=== PATIENT | female | born 1995 | race Caucasian/White ===

== ENCOUNTER 2018-09-23 12:25 | Outpatient (REF) | payer MEDICAID, SELFPAY ==
[2018-09-23 18:58] LABS: HCT 40.7 % (36.0-46.0); HGB 13.5 g/dL (12.0-15.5); Mean Corp. HGB Concentration 33.2 g/dL (32.0-36.0); Mean Corpuscular Hemoglobin 27.3 pg (27.0-33.0); Mean Corpuscular Volume 82.4 fL (80-95); Platelet Count 315 x1000/uL (130-400); RBC 4.94 m/cumm (4.00-5.20); RBC Distribution Width 13.8 % (11.7-14.6); White Blood Cell Count 7.22 k/cumm (4.4-10.8)
== END 2018-09-23 12:45 ==
LOC: NCHCN 12:25
PROVIDERS: PCP Physician Assistant; Visit Provider Nurse Practitioner Family
DX: R53.83 Other fatigue (principal)
CPT/HCPCS: 85027

== ENCOUNTER 2020-03-16 12:27 | Outpatient (REF) | payer MEDICAID, SELFPAY ==
[2020-03-19 21:42] LABS: Chlamydia amplified RNA Negative (Negative); N gonorrhoeae amplified RNA Negative (Negative); Source VAGINAL
== END 2020-03-16 12:47 ==
LOC: NCHCN 12:27
PROVIDERS: PCP Physician Assistant; Visit Provider Physician Assistant
DX: R35.0 Frequency of micturition (principal)
CPT/HCPCS: 87077; 87491; 87591; 87086; 87186; 87480; 87510; 87660

== ENCOUNTER 2021-01-26 12:05 | Outpatient (REF) | payer MEDICAID, SELFPAY ==
[2021-01-28 10:56] LABS: COVID-19 RT-PCR UVMMC Result Negative (Negative)
== END 2021-01-26 12:06 | disposition home or self-care (01) ==
LOC: NCHCN 12:05
PROVIDERS: PCP Physician Assistant; Visit Provider Internal Medicine
DX: Z20.822 Contact with and (suspected) exposure to COVID-19 (principal)
CPT/HCPCS: U0003

== ENCOUNTER 2021-08-16 14:32 | Outpatient (REF) | payer MEDICAID, SELFPAY ==
[2021-08-18 11:26] LABS: COVID-19 RT-PCR UVMMC Result Negative (Negative)
== END 2021-08-16 14:33 | disposition home or self-care (01) ==
LOC: NCHCN 14:32
PROVIDERS: PCP Physician Assistant; Visit Provider Internal Medicine
DX: Z20.822 Contact with and (suspected) exposure to COVID-19 (principal)
CPT/HCPCS: U0003

== ENCOUNTER 2022-07-18 16:48 | Outpatient (REF) | payer MEDICAID, SELFPAY ==
[2022-07-18 19:29] LABS: Hemoglobin A1C 4.7 % (<5.7)
[2022-07-18 19:41] LABS: ALT 21 U/L (14-59); AST 21 U/L (15-37); Albumin 4.2 g/dL (3.4-5.0); Alkaline Phosphatase 69 U/L (46-116); Anion Gap 8.6 mmol/L (3-11); BUN 11 mg/dL (7-18); Bilirubin, Total 0.3 mg/dL (0.2-1.0); CO2 27.4 mmol/L (21.0-32.0); CREATININE 0.8 mg/dL (0.55-1.02); Chloride 104 mmol/L (98-107); Estimated GFR 104.15 (mL/min/1.73m2); Glucose 98 mg/dL (74-106); Potassium 4.1 mmol/L (3.5-5.1); Sodium 140 mmol/L (136-145); Total Protein 7.5 g/dL (6.4-8.2)
[2022-07-20 10:15] LABS: Hepatitis C Ab w Rflx HCV PCR Negative (Negative)
[2022-07-20 10:35] LABS: HIV-1/2 Ag & Ab Screen Negative (Negative)
[2022-07-20 10:46] LABS: Syphilis Serology (RPR) Negative (Negative)
[2022-07-20 14:11] LABS: Chlamydia Result Negative (Negative); GC Result Negative (Negative)
== END 2022-07-18 16:49 | disposition home or self-care (01) ==
LOC: NCHCN 16:48
PROVIDERS: PCP Physician Assistant; Visit Provider Nurse Practitioner Family
DX: Z13.220 Encounter for screening for lipoid disorders (principal); Z13.1 Encounter for screening for diabetes mellitus; Z11.3 Encounter for screening for infections with a predominantly sexual mode of transmission; Z11.4 Encounter for screening for human immunodeficiency virus [HIV]; Z11.59 Encounter for screening for other viral diseases
CPT/HCPCS: 80053; 86803; 87389; 87491; 87591; 83036; 86592

== ENCOUNTER 2023-02-06 11:34 | Outpatient (REF) | payer MEDICAID, SELFPAY ==
[2023-02-06 20:17] LABS: ALT 15 U/L (14-59); AST 16 U/L (15-37); Albumin 3.8 g/dL (3.4-5.0); Alkaline Phosphatase 61 U/L (46-116); Anion Gap 7.1 mmol/L (3-11); BUN 8 mg/dL (7-18); Bilirubin, Total 0.4 mg/dL (0.2-1.0); CO2 27.9 mmol/L (21.0-32.0); CREATININE 0.8 mg/dL (0.55-1.02); Calcium 9.2 mg/dL (8.5-10.1); Chloride 105 mmol/L (98-107); Estimated GFR 104.15 (mL/min/1.73m2); Glucose 76 mg/dL (74-106); Potassium 4.2 mmol/L (3.5-5.1); Sodium 140 mmol/L (136-145); TSH 0.54 uIU/mL (0.36-3.74); Total Protein 7.3 g/dL (6.4-8.2)
== END 2023-02-06 11:35 | disposition home or self-care (01) ==
LOC: NCHCN 11:34
PROVIDERS: PCP Physician Assistant; Visit Provider Nurse Practitioner Family
DX: R42 Dizziness and giddiness (principal); G43.909 Migraine, unspecified, not intractable, without status migrainosus
CPT/HCPCS: 80053; 84443

== ENCOUNTER 2024-02-26 19:44 | Outpatient (REF) | payer MEDICAID, SELFPAY ==
[2024-02-27 19:42] LABS: HIV-1/2 Ag & Ab Screen Negative (Negative)
[2024-02-27 19:50] LABS: Hepatitis C Ab w Rflx HCV PCR Negative (Negative)
[2024-02-28 09:50] LABS: Syphilis Serology (RPR) Negative (Negative)
[2024-03-01 22:23] LABS: Chlamydia amplified RNA Negative (Negative); N gonorrhoeae amplified RNA Negative (Negative); Source Vaginal
[2024-03-06 08:37] LABS: Misc Referral (MAYO) See Comments
== END 2024-02-26 19:45 | disposition home or self-care (01) ==
LOC: NCHCN 19:44
PROVIDERS: PCP Physician Assistant; Visit Provider Nurse Practitioner Family
DX: Z11.3 Encounter for screening for infections with a predominantly sexual mode of transmission (principal)
CPT/HCPCS: 86803; 87389; 87491; 87591; 87661; 86592

== ENCOUNTER 2024-05-19 15:28 | Outpatient (REF) | payer MEDICAID, SELFPAY ==
[2024-05-20 19:36] LABS: HIV-1/2 Ag & Ab Screen Negative (Negative)
[2024-05-20 20:11] LABS: Hepatitis C Ab w Rflx HCV PCR Negative (Negative)
[2024-05-21 11:04] LABS: Syphilis Serology (RPR) Negative (Negative)
[2024-05-21 13:06] LABS: Bacterial Vaginosis (BV) Positive (Negative); Candida glabrata Negative (Negative); Candida species group Negative (Negative); Chlamydia Result Negative (Negative); GC Result Negative (Negative); Trichomonas vaginalis Negative (Negative)
== END 2024-05-19 15:29 | disposition home or self-care (01) ==
LOC: NCHCN 15:28
PROVIDERS: PCP Physician Assistant; Visit Provider Nurse Practitioner Family
DX: Z11.3 Encounter for screening for infections with a predominantly sexual mode of transmission (principal)
CPT/HCPCS: 81513; 86803; 87389; 87481; 87491; 87591; 87661; 86592

== ENCOUNTER 2024-12-16 19:24 | Outpatient (REF) | payer MEDICAID, SELFPAY ==
--- NOTE | 2024-12-16 13:43 | PAPFT_PTH ---
PATIENT: Tatiana Cheney LOC: [facility]#:[id number] AGE/SX: 29/F ROOM: RE12/16/[address]: Mercedes Lemus : 1995 BED: DIS: 12/16/2024 SPEC #: [id number] RECD: 12/17/24 13:16 STATUS: PABLO RETunde #: [id number] LAVELL: 12/16/24 13:[address] Cytology RECD BY: Francie Garcia ENTERED: 12/17/24 13:16 SP TYPE: PAPFT OTHR DR: Trenton Yan Tissues: 1 - CX/ENDOCX FOR PAP SMEARS Procedures: PAP THIN PREP/[facility] Screening Comments: [id number] (CHLAMYDIA/GC)
[2024-12-17 18:50] LABS: Hepatitis C Ab w Rflx HCV PCR Negative (Negative)
[2024-12-17 20:34] LABS: HIV-1/2 Ag & Ab Screen Negative (Negative)
[2024-12-18 10:02] LABS: Syphilis Serology (RPR) Negative (Negative)
[2024-12-18 12:36] LABS: Bacterial Vaginosis (BV) Positive (Negative); Candida glabrata Negative (Negative); Candida species group Positive (Negative)
[2024-12-18 12:48] LABS: Chlamydia Result Negative (Negative); GC Result Negative (Negative)
== END 2024-12-16 19:25 | disposition home or self-care (01) ==
LOC: NCHCN 19:24
PROVIDERS: PCP Physician Assistant; Visit Provider Nurse Practitioner Family
DX: Z11.3 Encounter for screening for infections with a predominantly sexual mode of transmission (principal)
CPT/HCPCS: 81513; 86803; 87389; 87481; 87491; 87591; 87661; 88142; 86592

== ENCOUNTER 2024-12-29 20:45 | Outpatient (REF) | payer MEDICAID, SELFPAY ==
[2024-12-29 21:28] LABS: Cannabinoids THC Negative (Negative); METHADONE URINE SCREEN Negative (Negative)
[2025-01-02 05:46] LABS: Cocaine Interpretation Positive.
== END 2024-12-29 20:46 | disposition home or self-care (01) ==
LOC: NCHCN 20:45
PROVIDERS: PCP Physician Assistant; Visit Provider Nurse Practitioner Psychiatric/Mental Health
DX: F90.9 Attention-deficit hyperactivity disorder, unspecified type (principal); Z51.81 Encounter for therapeutic drug level monitoring
CPT/HCPCS: 80307; 80353; 82520